=== PATIENT | male | born 1930 | race Caucasian/White ===

== ENCOUNTER 2017-08-25 04:53 | Inpatient (IN) | payer MEDICARE ==
--- NOTE | 2017-08-25 05:10 | C.PDOC ---
History Of Present Illness 87 y/o male brought to the ED for evaluatin s/p fall this morning. Patient states he rolled out of bed and fell hitting the left side of face and left ribs. Denies any LOC. Patient remembers the event. Denies any dizziness, chest pain, SOB, visual changes, or other injury. - HPI Time Seen by Provider: 08/25/17 05:10 Chief Complaint (Nursing): Trauma History Per: Patient History/Exam Limitations: no limitations Onset/Duration Of Symptoms: Mins Injury Occurred (Timing): Just Before Arrival Location Of Injury: Left: Face Severity: Moderate Pain Scale Rating Of: 5 Recent travel outside of the [place]: No Past Medical History Reviewed: Historical Data, Nursing Documentation, Vital Signs Vital Signs: Last Vital Signs Temp 97.7 F 08/25/17 05:10 Pulse 59 L 08/25/17 06:58 Resp 16 08/25/17 06:58 BP 132/57 L 08/25/17 06:58 Pulse Ox 96 08/25/17 06:58 - Medical History PMH: HTN Family History: States: No Known Family Hx - Social History Hx Tobacco Use: No Hx Alcohol Use: No Hx Substance Use: No - Immunization History Hx Tetanus Toxoid Vaccination: No Hx Influenza Vaccination: Yes Hx Pneumococcal Vaccination: Yes Review Of Systems Eyes: Negative for: Vision Change Cardiovascular: Negative for: Chest Pain Respiratory: Negative for: Shortness of Breath Musculoskeletal: Positive for: Other (left rib pain). Negative for: Neck Pain, Back Pain Skin: Positive for: Lesions (to left face) Neurological: Negative for: Headache, Dizziness Physical Exam - Physical Exam Appears: Non-toxic, No Acute Distress Skin: Warm, Dry Head: Normacephalic, Abrasion (abrasion over left eyebrow, tender to palpation) , No Other (crepitus) Eye(s): bilateral: Normal Inspection Oral Mucosa: Moist Neck: Supple Chest: Symmetrical, Other (Left rib tenderness) Cardiovascular: Rhythm Regular Respiratory: No Rales, No Rhonchi, No Wheezing Gastrointestinal/Abdominal: Soft, No Tenderness, No Distention Extremity: Bilateral: Atraumatic, Normal Color And Temperature, Normal ROM Pulses: Left Dorsalis Pedis: Normal, Right Dorsalis Pedis: Normal Neurological/Psych: Oriented x3 ED Course And Treatment - Laboratory Results Result Diagrams: 08/25/17 06:31 08/25/17 06:31 ECG: Interpreted By Me, Viewed By Me ECG Rhythm: Sinus Rhythm (61), Nonspecific Changes O2 Sat by Pulse Oximetry: 98 Pulse Ox Interpretation: Normal Progress Note: Patient given Tylenol PO. Ordered CT scans of head, orbit, and chest. Labs, EKG, CXR ordered and reviewed. NIHSS Stroke Scale - Date/Time Evaluation Performed Date Performed: 08/25/17 Time Performed: 05:15 - How Severe is the [place] Level of Consciousness: 0=Alert LOC to Questions: 0=Both comments correct LOC to commands: 0=Obeys both correctly Best Gaze: 0=Normal Visual: 0=No visual loss Facial: 0=Normal Motor Arm - Left: 0=No drift Motor Arm - Right: 0=No drift Motor Leg - Left: 0=No drift Motor Leg - Right: 0=No drift Limb Ataxia: 0=Absent Sensory: 0=Normal Best Language: 0=No aphasia Dysarthia: 0=Normal articulation Extinction & Inattention (Neglect): 0=Normal, no object Score: 0 Severity Of Stroke: 0= No Stroke Disposition Counseled Patient/Family Regarding: Studies Performed, Diagnosis - Disposition Disposition Time: 05:10 Condition: UNKNOWN Forms: [facility] (Nauruan) - Clinical Impression Clinical Impression: Fall, Minor head injury without loss of consciousness - Scribe Statement The provider has reviewed the documentation as recorded by the Scribbetsy Mcelroy Provider Attestation: All medical record entries made by the Scribe were at my direction and personally dictated by me. I have reviewed the chart and agree that the record accurately reflects my personal performance of the history, physical exam, medical decision making, and the department course for this patient. I have also personally directed, reviewed, and agree with the discharge instructions and disposition. Physician Patient Turnover Patient Signed Over To: Datyon Rodgers Handoff Comments: pending labs, CT and dispostion
[2017-08-25 06:39] LABS: BASO % 0.3 % (0.0-2.0); EOS # 0.1 K/uL (0.0-0.7); EOS % 1.6 % (0.0-4.0); HEMOGLOBIN 13.3 g/dL (12.0-18.0); LYMPH # 1.3 K/uL (1.0-4.3); LYMPH % 14.6 % (20.0-40.0); MEAN CELL VOLUME 85.5 fL (80.0-94.0); MEAN CORPUSCULAR HEMOGLOBIN 29.1 pg (27.0-31.0); MEAN CORPUSCULAR HGB CONC 34.1 g/dL (33.0-37.0); MEAN PLATELET VOLUME 8.5 fL (7.2-11.7); MONO # 0.7 K/uL (0.0-0.8); MONO % 7.9 % (0.0-10.0); NEUT # 6.9 K/uL (1.8-7.0); NEUT % 75.6 % (50.0-75.0); NRBC % 0.1 % (0.0-2.0); RBC 4.57 Mil/uL (4.40-5.90); RED CELL DISTRIBUTION WIDTH 13.8 % (11.5-14.5); WHITE BLOOD COUNT 9.2 K/uL (4.8-10.8)
[2017-08-25 06:44] LABS: PROTHROMBIN TIME 11.7 SECONDS (9.7-12.2)
[2017-08-25 06:53] LABS: ALB/GLOB RATIO 0.9 (1.0-2.1); ALT/SGPT 19 U/L (21-72); AST/SGOT 23 U/L (17-59); BLOOD UREA NITROGEN 26 mg/dL (9-20); CALCIUM 9.1 mg/dl (8.6-10.4); GFR AFRICAN-AMERICAN 58; GFR NON-AFRICAN AMERICAN 48
--- NOTE | 2017-08-25 07:17 | CT ---
EXAM: CT Head Without Intravenous Contrast CLINICAL HISTORY: 87 years old, male; Pain; Headache and other: R/O bleed; Additional info: Fall TECHNIQUE: Axial computed tomography images of the head/brain without intravenous contrast. All CT scans at this facility use one or more dose reduction techniques, viz.: automated exposure control; ma/kV adjustment per patient size (including targeted exams where dose is matched to indication; i.e. head); or iterative reconstruction technique. Coronal and sagittal reformatted images were created and reviewed. COMPARISON: No relevant prior studies available. FINDINGS: Brain: There is mild diffuse cerebral atrophy present, consistent with this patient's age. There is an round extra-axial hyperdensity along the RIGHT temporal convexity measuring 1.5 x 10 mm a RIGHT probably secondary to a calcified meningioma. However, given the history of trauma extra-axial hematoma is not excluded. There is mild diffuse heterogeneity of the white matter attenuation, consistent with chronic white matter ischemic changes. Ventricles: The ventricular system demonstrates mild diffuse compensatory enlargement. Bones/joints: Unremarkable. No acute fracture. Soft tissues: Unremarkable. Sinuses: There is minimal mucoperiosteal thickening in the maxillary sinuses, consistent with chronic sinusitis. Mastoid air cells: Unremarkable as visualized. No mastoid effusion. IMPRESSION: RIGHT temporal convexity extra-axial hyperdense debris benign calcified meningioma. However, in the setting of trauma, extra-axial hematoma is not excluded. Prior study has been requested for comparison. If these become available an addendum will be made. Age-related atrophy and chronic white matter ischemic changes.
--- NOTE | 2017-08-25 07:37 | CT ---
EXAM: CT Chest Without Intravenous Contrast CLINICAL HISTORY: 87 years old, male; Pain; Chest wall pain; Additional info: Left rib pain, S/P fall, TECHNIQUE: Axial computed tomography images of the chest without intravenous contrast. All CT scans at this facility use one or more dose reduction techniques, viz.: automated exposure control; ma/kV adjustment per patient size (including targeted exams where dose is matched to indication; i.e. head); or iterative reconstruction technique. Coronal and sagittal reformatted images were created and reviewed. COMPARISON: No relevant prior studies available. FINDINGS: Lungs: Extensive bilateral groundglass opacities are identified suggesting infectious/inflammatory process or pulmonary edema. Pulmonary contusion is not excluded. Multiple bilateral pulmonary nodules. 5 mm LEFT lung base tiny nodule, image 86 series 4. The lungs are hyperinflated with increased AP diameter suggesting COPD. Pleural space: Unremarkable. No pneumothorax. No significant effusion. Heart: Coronary artery calcification. No significant pericardial effusion. Bones/joints: Unremarkable. No acute fracture. No dislocation. Soft tissues: Unremarkable. Vasculature: The ascending and descending aorta are ectatic. The ascending aorta measures 4.3 cm and the descending aorta measures 3.9 cm. No rupture. Lymph nodes: Unremarkable. No enlarged lymph nodes. Gallbladder and bile ducts: There has been a cholecystectomy. IMPRESSION: Extensive bilateral groundglass opacities. Differential diagnosis include infectious/inflammatory processes and pulmonary edema. Pulmonary contusion is not excluded. Multiple bilateral pulmonary nodules. Recommend follow-up chest CT at 3-6 months. Thoracic aortic aneurysm. Cholecystectomy. COPD.
--- NOTE | 2017-08-25 07:43 | CT ---
EXAM: CT Orbits Without Intravenous Contrast CLINICAL HISTORY: 87 years old, male; Pain; Eye pain and face pain; Left; Additional info: Fall TECHNIQUE: Axial computed tomography images of the orbits without intravenous contrast. All CT scans at this facility use one or more dose reduction techniques, viz.: automated exposure control; ma/kV adjustment per patient size (including targeted exams where dose is matched to indication; i.e. head); or iterative reconstruction technique. Coronal and sagittal reformatted images were created and reviewed. COMPARISON: CT - HEAD W/O CONTRAST 2017-08-25 06:03 FINDINGS: Orbits: Unremarkable. No orbital floor fracture. Sinuses: There is mild mucoperiosteal thickening in the maxillary, ethmoid and frontal sinuses and in, consistent with chronic sinusitis. No air-fluid levels. Bones/joints: No acute fracture. Soft tissues: LEFT periorbital soft tissue swelling. IMPRESSION: No acute fracture. Minimal chronic sinusitis. LEFT periorbital soft tissue swelling.
--- NOTE | 2017-08-25 08:45 | CP.PCM.HP ---
History of Present Illness - History of Present Illness History of Present Illness: Medicine H/P HPI: Patient is a 87M with a PMH of HTN who comes to the ED after falling off of his bed. States that he was laying in bed, rolled off and bumped his head on the floor. Presents with a lac on the L. forehead. He is only complaining of mild pain at the site. Denies any prior episodes. Denies any confusion, changes in vision, changes in speech, headache, syncope. CT scan done in the ED shows Meningioma in the R. temporal lobe. MRI confirms these findings. Patient is asymptomatic when I saw him in the ED. Present on Admission - Present on Admission Any Indicators Present on Admission: No Past Patient History - Past Social History Smoking Status: Never Smoked - CARDIAC Hx Hypertension: Yes - PSYCHIATRIC Hx Substance Use: No Meds Allergies/Adverse Reactions: Allergies Allergy/AdvReac Type Severity Reaction Status Date / Time Penicillins Allergy Unknown RASH Verified 08/25/17 05:16 Physical Exam - Constitutional Appears: Well - Head Exam Head Exam: NORMAL INSPECTION, NORMOCEPHALIC Additional comments: laceration over the L. forehead - Eye Exam Eye Exam: EOMI, Normal appearance, PERRL Pupil Exam: NORMAL ACCOMODATION, PERRL - ENT Exam ENT Exam: Mucous Membranes Moist, Normal Exam - Neck Exam Neck exam: Positive for: Normal Inspection - Respiratory Exam Respiratory Exam: Clear to Auscultation Bilateral, NORMAL BREATHING PATTERN - Cardiovascular Exam Cardiovascular Exam: REGULAR RHYTHM - GI/Abdominal Exam GI & Abdominal Exam: Normal Bowel Sounds, Soft. absent: Tenderness - Extremities Exam Extremities exam: Positive for: normal inspection - Back Exam Back exam: NORMAL INSPECTION - Neurological Exam Neurological exam: Alert, CN II-XII Intact, Normal Gait, Oriented x3, Reflexes Normal - Psychiatric Exam Psychiatric exam: Normal Affect, Normal Mood - Skin Skin Exam: Dry, Intact, Normal Color, Warm Results - Vital Signs Recent Vital Signs: Last Vital Signs Temp 97.4 F L 08/25/17 08:27 Pulse 68 08/25/17 08:00 Resp 16 08/25/17 08:00 BP 135/55 L 08/25/17 08:00 Pulse Ox 98 08/25/17 08:00 - Labs Result Diagrams: 08/25/17 06:31 08/25/17 06:31 Labs: Laboratory Results - last 24 hr 08/25/17 08/25/17 08/25/17 06:07 06:31 06:31 WBC 9.2 RBC 4.57 Hgb 13.3 Hct 39.1 MCV 85.5 MCH 29.1 MCHC 34.1 RDW 13.8 Plt Count 197 MPV 8.5 Neut % (Auto) 75.6 H Lymph % (Auto) 14.6 L [place] % (Auto) 7.9 Eos % (Auto) 1.6 Baso % (Auto) 0.3 Neut # (Auto) 6.9 Lymph # (Auto) 1.3 [place] # (Auto) 0.7 Eos # (Auto) 0.1 Baso # (Auto) 0.0 PT 11.7 INR 1.0 APTT 32 Sodium 141 Potassium 3.7 Chloride 100 Carbon Dioxide 27 Anion Gap 19 BUN 26 H Creatinine 1.4 Est GFR ( Amer) 58 Est GFR (Non-Af Amer) 48 Random Glucose 94 Calcium 9.1 Total Bilirubin 0.5 AST 23 ALT 19 L Alkaline Phosphatase 82 Total Protein 8.4 H Albumin 4.0 Globulin 4.4 H Albumin/Globulin Ratio 0.9 L Serum Ketones Negative Blood Type Antibody Screen 08/25/17 06:31 WBC RBC Hgb Hct MCV MCH MCHC RDW Plt Count MPV Neut % (Auto) Lymph % (Auto) [place] % (Auto) Eos % (Auto) Baso % (Auto) Neut # (Auto) Lymph # (Auto) [place] # (Auto) Eos # (Auto) Baso # (Auto) PT INR APTT Sodium Potassium Chloride Carbon Dioxide Anion Gap BUN Creatinine Est GFR ( Amer) Est GFR (Non-Af Amer) Random Glucose Calcium Total Bilirubin AST ALT Alkaline Phosphatase Total Protein Albumin Globulin Albumin/Globulin Ratio Serum Ketones Blood Type O POSITIVE Antibody Screen Negative Assessment & Plan - Assessment and Plan (Free Text) Assessment: Fall Neuro (Korya) - recommends EEG to R/O seizure as cause of fall Neuro (Samanta Hernandez) - f/u reccs MRI shows 1.4 cm meningioma in R. temporal lobe Will f/u further neuro reccs EKG was unremarkable CT chest in done in ED shows multiple pulm nodules, Recc to follow up in 3-6 months with repeat scan HTN Losartan 100 PO QD PPX VTE CI for intracranial mass GI PPX not indicated Regular diet Activity as tolerated
--- NOTE | 2017-08-25 08:57 | RAD ---
PROCEDURE: CHEST RADIOGRAPH, 1 VIEW HISTORY: SOB COMPARISON: . Same dated CT chest study Please note the report FINDINGS: LUNGS: No consolidation. Interstitial/bronchovascular markings minimally prominent- chronicity unknown. Sub cm vague opacities more eccentric rated mid lung zone. CT reference of the noted nonspecific PLEURA: No pneumothorax or pleural fluid seen. CARDIOVASCULAR: Cardiomegaly. Minimal pulmonary venous congestion -chronicity unknown OSSEOUS STRUCTURES: Bilateral shoulder arthrosis. VISUALIZED UPPER ABDOMEN: Normal. OTHER FINDINGS: None. IMPRESSION: No consolidation. Other findings as above. Please note the same-day CT chest study for findings referenced there and for which short-term follow-up CT chest imaging has been recommended.
[2017-08-25 09:33] LABS: URINE BILIRUBIN NEGATIVE (NEGATIVE); URINE BLOOD NEGATIVE (NEGATIVE); URINE CLARITY Clear (Clear); URINE COLOR Yellow (YELLOW); URINE GLUCOSE (UA) NORMAL (Normal); URINE LEUKOCYTE ESTERASE NEG Leu/uL (Negative); URINE PROTEIN NEGATIVE (NEGATIVE); URINE UROBILINOGEN NORMAL mg/dL (0.2-1.0)
--- NOTE | 2017-08-25 10:54 | MRI ---
PROCEDURE: MRI BRAIN WITHOUT CONTRAST HISTORY: meningioma VS blood COMPARISON: 08/25/2017 CT brain TECHNIQUE: Multiplanar, multisequence MR images of the brain were obtained without intravenous contrast enhancement. FINDINGS: HEMORRHAGE: None DWI: No evidence of an acute or early subacute infarction. BRAIN PARENCHYMA: 1.4 centimeter low right lateral temporal soft tissue mass, isointense to brain parenchyma along the dural margin compatible with a meningioma. Chronic periventricular white matter ischemic disease as well as mild atrophy. VENTRICLES: Unremarkable. No hydrocephalus. CRANIUM: Unremarkable. ORBITS: Grossly unremarkable. PARANASAL SINUSES/MASTOIDS: Clear VASCULAR SYSTEM: Skull base flow voids intact. OTHER FINDINGS: None. IMPRESSION: 1.4 centimeter low right lateral temporal soft tissue mass, isointense to brain parenchyma along the dural margin compatible with a meningioma. Chronic periventricular white matter ischemic disease as well as mild atrophy.
[2017-08-25 14:39] VITALS: O2SAT 98
[2017-08-25 15:44] VITALS: BP 131/57; RESP 16; TEMP 97.4
[2017-08-25] MEDS ORDERED: PrednisoLONE 1% Opht Susp(5 ml) OU SCH (18:00)
--- NOTE | 2017-08-25 18:03 | CP.PCM.CON ---
History of Present Illness - History of Present Illness History of Present Illness: Neurology Consultation Note: Mr. Payne is an 87-year-old man with a past medical history of hypertension, who presented to the ED after he fell out of bed, does not recall how, but found himself on the floor with injury to the forehead and scalp. CT scan of the head was done and showed a right temporal meningioma measuring about 1.5 cm. Review of Systems - Review of Systems All systems: reviewed and no additional remarkable complaints except Past Patient History - Past Social History Smoking Status: Never Smoked - CARDIAC Hx Hypertension: Yes - MUSCULOSKELETAL/RHEUMATOLOGICAL Hx Falls: Yes - PSYCHIATRIC Hx Substance Use: No Meds Allergies/Adverse Reactions: Allergies Allergy/AdvReac Type Severity Reaction Status Date / Time Penicillins Allergy Unknown RASH Verified 08/25/17 05:16 - Medications Medications: Current Medications Losartan Potassium (Cozaar) 100 mg PO DAILY [facility] Last Admin: 08/25/17 15:42 Dose: 100 mg Prednisolone Acetate (Pred Forte 1% Opht Susp) 0 ml OU BID [facility] Physical Exam - Constitutional Appears: Well - Head Exam Head Exam: ATRAUMATIC, NORMAL INSPECTION, NORMOCEPHALIC - Eye Exam Eye Exam: EOMI, Normal appearance, PERRL - Cardiovascular Exam Cardiovascular Exam: REGULAR RHYTHM - GI/Abdominal Exam GI & Abdominal Exam: Normal Bowel Sounds, Soft. absent: Tenderness - Neurological Exam Neurological exam: Alert, CN II-XII Intact, Normal Gait, Oriented x3, Reflexes Normal - Psychiatric Exam Psychiatric exam: Normal Affect, Normal Mood Results - Vital Signs Recent Vital Signs: Last Vital Signs Temp 97.4 F L 08/25/17 15:43 Pulse 51 L 08/25/17 15:43 Resp 16 08/25/17 15:43 BP 131/57 L 08/25/17 15:43 Pulse Ox 98 08/25/17 14:00 - Labs Result Diagrams: 08/25/17 06:31 08/25/17 06:31 Labs: Laboratory Results - last 24 hr 08/25/17 08/25/17 08/25/17 06:07 06:31 06:31 WBC 9.2 RBC 4.57 Hgb 13.3 Hct 39.1 MCV 85.5 MCH 29.1 MCHC 34.1 RDW 13.8 Plt Count 197 MPV 8.5 Neut % (Auto) 75.6 H Lymph % (Auto) 14.6 L [place] % (Auto) 7.9 Eos % (Auto) 1.6 Baso % (Auto) 0.3 Neut # (Auto) 6.9 Lymph # (Auto) 1.3 [place] # (Auto) 0.7 Eos # (Auto) 0.1 Baso # (Auto) 0.0 PT 11.7 INR 1.0 APTT 32 Sodium 141 Potassium 3.7 Chloride 100 Carbon Dioxide 27 Anion Gap 19 BUN 26 H Creatinine 1.4 Est GFR ( Amer) 58 Est GFR (Non-Af Amer) 48 Random Glucose 94 Calcium 9.1 Total Bilirubin 0.5 AST 23 ALT 19 L Alkaline Phosphatase 82 Total Protein 8.4 H Albumin 4.0 Globulin 4.4 H Albumin/Globulin Ratio 0.9 L Urine Color Urine Clarity Urine pH Ur Specific [place] Urine Protein Urine Glucose (UA) Urine Ketones Urine Blood Urine Nitrate Urine Bilirubin Urine Urobilinogen Ur Leukocyte Esterase Urine WBC (Auto) Urine RBC (Auto) Serum Ketones Negative Blood Type Antibody Screen 08/25/17 08/25/17 06:31 09:20 WBC RBC Hgb Hct MCV MCH MCHC RDW Plt Count MPV Neut % (Auto) Lymph % (Auto) [place] % (Auto) Eos % (Auto) Baso % (Auto) Neut # (Auto) Lymph # (Auto) [place] # (Auto) Eos # (Auto) Baso # (Auto) PT INR APTT Sodium Potassium Chloride Carbon Dioxide Anion Gap BUN Creatinine Est GFR ( Amer) Est GFR (Non-Af Amer) Random Glucose Calcium Total Bilirubin AST ALT Alkaline Phosphatase Total Protein Albumin Globulin Albumin/Globulin Ratio Urine Color Yellow Urine Clarity Clear Urine pH 6.0 Ur Specific [place] 1.012 Urine Protein Negative Urine Glucose (UA) Normal Urine Ketones Negative Urine Blood Negative Urine Nitrate Negative Urine Bilirubin Negative Urine Urobilinogen Normal Ur Leukocyte Esterase Neg Urine WBC (Auto) 1 Urine RBC (Auto) 1 Serum Ketones Blood Type O POSITIVE Antibody Screen Negative Assessment & Plan (1) Meningioma Assessment and Plan: Due to the location of the mass, seizures are possible. The patient does not recall what happened, but he was asleep and may have rolled out of bed and found himself on the ground. I recommend an EEG to be done for further evaluation. This can be done as an outpatient and I can see the patient for follow up in clinic. Thank you. Status: Acute Priority: High
[2017-08-25 18:30] VITALS: PULSE 61
--- NOTE | 2017-08-25 18:35 | CON ---
DATE: 08/25/2017 NEUROLOGY CONSULT CHIEF COMPLAINT: Status post fall with MRI of the brain showing a 1.4 cm low right temporal soft tissue mass along the dural margin compatible with a meningioma, but no acute intracranial abnormalities. No mass effect. He is moving all extremities. He just walked to the bathroom. He is mildly deconditioned. He has a history of hypertension. REVIEW OF SYSTEMS: A 14-point review of system is negative except as in the HPI. PAST MEDICAL HISTORY: Hypertension. SOCIAL HISTORY: No illicit drug use, smoking, or EtOH abuse. FAMILY HISTORY: Noncontributory. MEDICATIONS: Reviewed via nurse reconciliation sheet. LABORATORY DATA: Sodium is 141, potassium 3.7, chloride of 100, carbon dioxide 27, BUN of 36, creatinine 1.4, random glucose of 94. UTOX is negative. PHYSICAL EXAMINATION: VITAL SIGNS: Temperature of 97.4, heart rate of 45, blood pressure 131/57, respiratory rate of 16, oxygen saturation 98% on room air. GENERAL: The patient is sitting up in bed, in no acute distress. HEENT: Atraumatic, normocephalic. PERRLA. Extraocular muscles are intact. NECK: Supple. No JVD. No adenopathy noted. LUNGS: Clear to auscultation. No adventitious sounds. HEART: S1 and S2. Normal rate and rhythm. No murmurs, rubs, or gallops. ABDOMEN: Soft, nontender, and nondistended. Bowel sounds are present. EXTREMITIES: No clubbing. No cyanosis. Peripheral pulses are 2+ bilaterally. NEUROLOGIC: The patient is alert and oriented to person, place, month, and year. Speech is fluent without any errors. Cranial nerves II through XII are intact. Motor exam, moves all extremities equally. Sensory exam, light touch, pinprick, proprioception and, vibration are intact. DTRs are 2+ throughout. Coordination: [id number] intact. No dysmetria seen. Gait is deferred for now. ASSESSMENT AND PLAN: This is an 87-year-old man with past medical history of hypertension who had a fall from his bed. He said he was lying in his bed and rolled off and bumped his head on the floor, presents with a laceration on the left forehead, but otherwise no acute intracranial abnormalities. He had an MRI of the brain done which showed a 1.4 cm low right temporal lobe soft tissue mass consistent with a meningoma because it is going along the dural margin. No mass effect or any andie blood. It is mildly calcified. At this time, he does not remember how his fall happened. This fall could be secondary to overlying deconditioned state. We will recommend, 1. A neurosurgical evaluation as an outpatient for meningoma. 2. An EEG to assess brainwave activity. 3. PT/OT for gait and muscle strengthening assessment. 4. At this time, continue with current and present medical management. Thank you for this consult. Mian Hernandez MD
--- NOTE | 2017-08-25 23:45 | CARD ---
APPROVED REPORT EKG Measurement Heart [id number] <Conclusion> Normal sinus rhythm Normal ECG
== END 2017-08-25 20:04 | disposition left against medical advice (07) | DRG 55 ==
LOC: C.ER 04:53 → C.9E 07:54 → C.9I 11:31 → C.9E 11:40 → C.9I 12:43
PROVIDERS: ADMIT Internal Medicine; ATTEND Internal Medicine
DX: D32.0 Benign neoplasm of cerebral meninges (principal); I10 Essential (primary) hypertension; J44.9 Chronic obstructive pulmonary disease, unspecified; S01.81XA Laceration without foreign body of other part of head, initial encounter; W06.XXXA Fall from bed, initial encounter; Y92.003 Bedroom of unspecified non-institutional (private) residence as the place of occurrence of the external cause